=== PATIENT | female | born 1980 | race African-American/Black ===

== ENCOUNTER 2023-10-29 04:35 | Emergency (ER) | payer BC, MEDICAID ==
[~2023-10-29] VITALS: Ht 167.6 cm; Wt 104.3 kg
[2023-10-29 04:50] VITALS: O2SAT 100
[2023-10-29] MEDS ORDERED: IBUP-1525 MT (08:54)
[2023-10-29] MEDS ORDERED: DEXT30SU17 MT (08:54)
[2023-10-29] MEDS ORDERED: TOPUD MT (08:54)
[2023-10-29 09:27] VITALS: BP 129/89; PULSE 90; RESP 15; TEMP 98.5
== END 2023-10-29 09:36 | disposition home or self-care (01) ==
LOC: ER 04:35
DX: U07.1 COVID-19 (principal); Z90.49 Acquired absence of other specified parts of digestive tract
CPT/HCPCS: 99283; 87426; 87804 ×2; C9803

== ENCOUNTER 2025-03-22 18:38 | Emergency (ER) | payer BC ==
[~2025-03-22] VITALS: Ht 167.6 cm; Wt 109.0 kg
[~2025-03-22 18:38] MED LIST: DEXT30SU17 MT; IBUP-1525 MT; TOPUD MT
[2025-03-22 18:56] VITALS: TEMP 36.7; O2SAT 95
[2025-03-22] MEDS ORDERED: DEXAMETHASONE 2MG TABLET PO STA (19:33)
[2025-03-22] MEDS: DEXAMETHASONE 4MG TABLET PO NR (20:25)
[2025-03-22 20:47] VITALS: BP 140/74; PULSE 77; RESP 16; O2SAT 99
== END 2025-03-22 20:49 | disposition home or self-care (01) ==
LOC: ER 19:21
DX: T54.91XA Toxic effect of unspecified corrosive substance, accidental (unintentional), initial encounter (principal); Z79.1 Long term (current) use of non-steroidal anti-inflammatories (NSAID); Z90.49 Acquired absence of other specified parts of digestive tract; Z79.52 Long term (current) use of systemic steroids; Z79.899 Other long term (current) drug therapy; Y92.89 Other specified places as the place of occurrence of the external cause
CPT/HCPCS: 99283; 71045; 93005; J8540